=== PATIENT | female | born 1950 | race Two or more races ===

== ENCOUNTER 2019-06-02 08:50 | Outpatient (CLI) | payer OTHER | END 2019-06-02 11:28 | disposition home or self-care (01) | LOC: SONOGRAMA 08:50 | DX: E04.1 Nontoxic single thyroid nodule (principal) ==

== ENCOUNTER 2022-12-10 09:44 | Outpatient (CLI) | payer OTHER | END 2022-12-10 09:47 | disposition home or self-care (01) | LOC: SONOGRAMA 09:44 | PROVIDERS: ATTEND Pathology Anatomic Pathology | DX: D34 Benign neoplasm of thyroid gland (principal); E04.9 Nontoxic goiter, unspecified; E04.2 Nontoxic multinodular goiter ==